=== PATIENT | male | born 1985 | race Caucasian/White ===

== ENCOUNTER 2017-06-02 10:20 | Emergency (ER) | payer MEDICAID ==
[~2017-06-02] VITALS: Ht 177.8 cm; Wt 57.2 kg
[2017-06-02 11:12] LABS: Urine RBC None Seen /hpf (0 - 3)
[2017-06-02 11:36] LABS: Basophils # (auto) 0.1 uL; CONDITION Y; DEFINITIVE SEE PRINTOUT; Eosinophils # (auto) 0.1 uL; Eosinophils % (auto) 2.9 % (0.0-7.0); Hematocrit 43.3 % (41.0-53.0); Hemoglobin 14.9 g/dL (13.5-17.5); Lymphocytes # (auto) 1.3 uL; Mean Corpuscular Hemoglobin 35.2 pg (28.0-32.0); Mean Corpuscular Hgb Conc. 34.3 g/dL (32.0-36.0); Mean Corpuscular Volume 102.5 fL (80.0-100.0); Mean Platelet Volume 9.1 fL (7.4-10.4); Monocytes # (auto) 0.7 uL; Monocytes % (auto) 14.9 % (0.0-12.0); Neutrophils # (auto) 2.4 uL; Neutrophils % (auto) 51.2 % (37.0-80.0); Platelet Count (auto) 178 10^3/uL (140-450); Red Cell Distribution Width 13.3 % (11.6-16.0); White Blood Cell 4.6 10^3/uL (4.4-10.8)
[2017-06-02 11:42] LABS: Albumin 4.2 g/dL (3.4-5.0); BUN/Creatinine Ratio 16.1; Bilirubin, Total 0.5 mg/dL (0.2-1.0); Calcium 9.1 mg/dL (8.5-10.1); Potassium 3.4 mmol/L (3.5-5.1); Total Protein 7.8 g/dL (6.4-8.2)
[2017-06-02 11:44] LABS: Urine Bilirubin Negative (Negative); Urine Blood Negative /uL (Negative); Urine Color Yellow (Yellow); Urine Glucose Normal (Normal); Urine Ketone Negative (Negative); Urine Nitrite Negative (Negative); Urine Squamous Epithelial Cell FEW /hpf (<5); Urine Urobilinogen Normal (Negative)
[2017-06-02] MEDS ORDERED: SODIUM CHLORIDE 0.9% 1,000 ML IV ONE ×2 (12:39)
[2017-06-02] MEDS ORDERED: THIAMINE HCL 100 MG/ML 2ML VIAL IV ONE (12:45)
[2017-06-02] MEDS ORDERED: chlordiazePOXIDE HCL 5 MG CAP PO ONE (12:45)
[2017-06-02] MEDS ORDERED: ONDANSETRON HCL 4 MG/2 ML VIAL IV ONE (13:30)
[2017-06-02 17:56] VITALS: BP 137/89
== END 2017-06-02 17:20 | disposition home or self-care (01) ==
LOC: ER 10:20
DX: F10.10 Alcohol abuse, uncomplicated (principal); F17.210 Nicotine dependence, cigarettes, uncomplicated
CPT/HCPCS: 36415; 80053; 80307; 80320; 81001; 85025; 96361; 96374; 96375; 99285; J2405; J3411; J7030

== ENCOUNTER 2018-03-10 19:02 | Emergency (ER) | payer MEDICAID ==
[~2018-03-10] VITALS: Ht 177.8 cm; Wt 57.8 kg
[2018-03-10 19:12] VITALS: BP 138/98
[2018-03-10] MEDS ORDERED: TETANUS-DIPTH-ACEL PERTUSSIS 0.5ML SYRG IM ONE (21:00)
== END 2018-03-10 23:03 | disposition home or self-care (01) ==
LOC: ER 19:02
DX: L03.114 Cellulitis of left upper limb (principal); L03.113 Cellulitis of right upper limb; F17.210 Nicotine dependence, cigarettes, uncomplicated
CPT/HCPCS: 90471; 90715

== ENCOUNTER 2019-11-14 21:04 | Emergency (ER) | payer MEDICAID ==
[~2019-11-14] VITALS: Ht 177.8 cm; Wt 63.5 kg
[2019-11-14 22:11] LABS: Basophils # (auto) 0 uL; Basophils % (auto) 0.2 % (0.0-2.0); Eosinophils # (auto) 0 uL; Eosinophils % (auto) 0.1 % (0.0-7.0); Hemoglobin 17.3 g/dL (13.5-17.5); Lymphocytes # (auto) 0.2 uL; Mean Corpuscular Hemoglobin 31.1 pg (28.0-32.0); Mean Corpuscular Hgb Conc. 34.5 g/dL (32.0-36.0); Mean Corpuscular Volume 90.1 fL (80.0-100.0); Monocytes # (auto) 0.5 uL; Monocytes % (auto) 4.2 % (0.0-12.0); Neutrophils # (auto) 11.1 uL; Neutrophils % (auto) 93.5 % (37.0-80.0); Platelet Count (auto) 260 10^3/uL (140-450); Red Blood Cells 5.55 10^6/uL (4.5-5.90); Red Cell Distribution Width 12.7 % (11.8-14.3); White Blood Cell 11.9 10^3/uL (4.4-10.8)
[2019-11-14] MEDS ORDERED: SODIUM CHLORIDE 0.9% 1,000 ML IV ONE (22:15)
[2019-11-14 22:33] LABS: Albumin 3.6 g/dL (3.4-5.0); Potassium 3.6 mmol/L (3.5-5.1)
[2019-11-14 22:40] LABS: BUN/Creatinine Ratio 25.2; Bilirubin, Total 0.8 mg/dL (0.2-1.0); Total Protein 7.9 g/dL (6.4-8.2)
[2019-11-15] MEDS ORDERED: ONDANSETRON HCL 4 MG/2 ML VIAL IV ONE
[2019-11-15] MEDS ORDERED: MORPHINE SULFATE 4 MG/ML SYR/VIAL IV ONE
[2019-11-15 00:14] LABS: Urine Bacteria NONE SEEN /hpf (None Seen); Urine Blood Negative /uL (Negative); Urine Mucus FEW (None Seen); Urine Specific Gravity 1.032 (1.001-1.035); Urine WBC <1 /hpf (0 - 3)
[2019-11-15 00:22] LABS: Alcohol, Urine < 3.0 mg/dL (0-5); Amphetamine Screen, Urine POSITIVE (NEGATIVE); Barbiturate Scree,Urine NEGATIVE (NEGATIVE); Benzodiazephine Screen, Urine NEGATIVE (NEGATIVE); Cannabinoid Screen, Urine NEGATIVE (NEGATIVE); Cocaine Screen, Urine NEGATIVE (NEGATIVE); Phencyclidine Screen, Urine NEGATIVE (NEGATIVE)
[2019-11-15 00:33] LABS: Opiate Scree,Urine POSITIVE (NEGATIVE)
[2019-11-15] MEDS ORDERED: SODIUM CHLORIDE 0.9% 1,000 ML IV ONE (01:45)
[2019-11-15 03:00] VITALS: BP 116/58
== END 2019-11-15 01:31 | disposition home or self-care (01) ==
LOC: ER 21:06
DX: K52.9 Noninfective gastroenteritis and colitis, unspecified (principal); F19.10 Other psychoactive substance abuse, uncomplicated
CPT/HCPCS: 36415; 74176; 80053; 80307; 81001; 82150; 83690; 85025; 96361; 96374; 96375; 99284; J2270; J2405

== ENCOUNTER 2020-10-16 18:44 | Inpatient (IN) | payer MEDICAID ==
[~2020-10-16] VITALS: Ht 177.8 cm; Wt 63.8 kg
[2020-10-16] MEDS ORDERED: SODIUM CHLORIDE 0.9% 1,000 ML IV ONE ×2 (19:15→22:15)
[2020-10-16 20:44] LABS: Basophils # (auto) 0 10 ^3/uL (0-0.2); Basophils % (auto) 0.2 % (0.0-2.0); Eosinophils # (auto) 0 10 ^3/uL (0-0.8); Hematocrit 45.6 % (41.0-53.0); Hemoglobin 14.9 g/dL (13.5-17.5); Lymphocytes # (auto) 0.9 10 ^3/uL (0.4-5.4); Mean Corpuscular Hemoglobin 29.5 pg (28.0-32.0); Mean Corpuscular Hgb Conc. 32.6 g/dL (32.0-36.0); Mean Corpuscular Volume 90.7 fL (80.0-100.0); Monocytes # (auto) 0.1 10 ^3/uL (0-1.3); Monocytes % (auto) 0.5 % (0.0-12.0); Neutrophils # (auto) 16.1 10 ^3/uL (1.6-8.6); Neutrophils % (auto) 94.3 % (37.0-80.0); Platelet Count (auto) 230 10^3/uL (140-450); Red Blood Cells 5.03 10^6/uL (4.5-5.90); Red Cell Distribution Width 13.4 % (11.8-14.3); White Blood Cell 17.1 10^3/uL (4.4-10.8)
[2020-10-16] MEDS ORDERED: ONDANSETRON HCL 4 MG/2 ML VIAL IV ONE (20:45)
[2020-10-16] MEDS ORDERED: LORazepam 2MG/ML-1ML VIAL IV ONE (20:45)
[2020-10-16 21:01] LABS: Albumin 2.9 g/dL (3.4-5.0); Anion Gap 9 (5-15); Blood Urea Nitrogen 23 mg/dL (7-18); Calcium 8.3 mg/dL (8.5-10.1); Carbon Dioxide 26 mmol/L (21-32); Chloride 98 mmol/L (98-107); Glucose 115 mg/dL (74-106); Potassium 3.6 mmol/L (3.5-5.1); Sodium 133 mmol/L (136-145)
[2020-10-16 21:04] LABS: Lactic Acid w/Reflex 3.4 mmol/L (0.4-2.0)
[2020-10-16 21:05] LABS: Magnesium 1.8 mg/dL (1.6-2.6)
[2020-10-16 21:10] LABS: Alanine Aminotransferase 147 U/L (16-61); Alkaline Phosphatase 263 U/L (45-117); Aspartate Aminotransferase 54 U/L (15-37); BUN/Creatinine Ratio 19.5; CRP High Sensitivity > 19.0 mg/dL (< 0.3); GFR African American 91 mL/min; GFR Non-African American 75 mL/min; Total Protein 7.1 g/dL (6.4-8.2)
[2020-10-16] MEDS ORDERED: levoFLOXacin 750MG 150 ML IV ONE (21:30)
[2020-10-16] MEDS ORDERED: THIAMINE 100mg/ml INJ (200mg/2ml VIAL) IV ONE (22:15)
[2020-10-16 23:30] LABS: Alcohol, Urine < 3.0 mg/dL (0-10); Amphetamine Screen, Urine POSITIVE (NEGATIVE); Barbiturate Scree,Urine NEGATIVE (NEGATIVE); Benzodiazephine Screen, Urine NEGATIVE (NEGATIVE); Cocaine Screen, Urine NEGATIVE (NEGATIVE); Phencyclidine Screen, Urine NEGATIVE (NEGATIVE)
[2020-10-16 23:38] LABS: Cannabinoid Screen, Urine POSITIVE (NEGATIVE); Opiate Scree,Urine POSITIVE (NEGATIVE)
[2020-10-17] VITALS (7 sets, daily range): BP systolic 107–123; BP diastolic 59–74
[2020-10-17] MEDS ORDERED: LORazepam 2MG/ML-1ML VIAL IV ONE (01:00)
[2020-10-17] MEDS ORDERED: MORPHINE SULF INJ 2 MG/ML SYRINGE 1ML IV PRN (02:00)
[2020-10-17] MEDS ORDERED: NITROGLYCERIN 0.4 MG SL TAB SL PRN (02:00)
--- NOTE | 2020-10-17 03:40 | NUR ---
Received pt to Rm 273A via gurney. O2 per non-rebreather mask at 12lp. Pt writhing in bed freq c/o abd pain. Pt pale in color. Abd rounded but soft. Able to PULLIAM with coordination. Reluctance in answering questions. Repeatedly asking for pain medication. Bed low; HOB in [place]'s position. Nurse call light attached to HOB rail to pt's right. Began interview for hx. Zofran 4mg and MS 2mg given IVP for pain and to avoid N/V possible with morphine. Pt immediately fell asleep. Occ rousing then resuming sleep. Unkempt in appearance; skin and nails dirty as is hair.
[2020-10-17] MEDS: MORPHINE SULF INJ 2 MG/ML SYRINGE 1ML IV PRN ×4 (04:15→20:48)
[2020-10-17] MEDS: ONDANSETRON HCL 4 MG/2 ML VIAL IV PRN ×2 (04:15→06:27)
--- NOTE | 2020-10-17 06:22 | NUR ---
Pt repeatedly calling for more morphine or methadone. This RN went to pt's room this time to inform him that the med ordered for anxiety for him in the ER had been discontinued and his morphine is not due until 814. Reminded him that as he's not had the heroin he told this nurse he smokes, his stomach is probably reacting to this. Advised him to rethink how he self medicates when not in the hospital. Pt kept eyes closed entire time. Pt repeatedly removes O2; though assisted by this RN to replace it with instruction that he truly needs this.
[2020-10-17] MEDS: ACETAMINOPHEN 500 MG TAB PO PRN ×2 (08:31→16:19)
--- NOTE | 2020-10-17 09:06 | NUR ---
INFORMED PUBLIC INFORMATION OFFICER OF PATIENT STATUS INCLUDING MORNING VITALS AND NEW ORDERS. PATIENT MOVED TO ROOM 277A FOR CLOSER MONITORING.
--- NOTE | 2020-10-17 09:12 | NUR ---
CALLED AND SPOKE TO Srini LOCKWOOD. INFORMED OF PATIENT STATUS INCLUDING RECENT ABG STUDIES. INFORMED OF PATIENTS EPISODE OF EMESIS. RECEIVED NEW ORDERS. SEE EMAR. CALLED AND SPOKE TO RT AND INFORMED OF STATUS.
[2020-10-17] MEDS ORDERED: cefTRIAXone 1GM/50ML D5W 50 ML IV SCH (10:00)
[2020-10-17] MEDS: AZITHROMYCIN 500MG/ 250ML 250 ML IV SCH (10:36)
--- NOTE | 2020-10-17 10:46 | NUR ---
Assessment Patient is lethargic unable to assess. Will monitor mental status.
--- NOTE | 2020-10-17 11:37 | NUR ---
IV INSERTION TO RFA 20 GAUGE ON FIRST ATTEMPT OBTAINED. PATIENT TOLERATED WELL.
[2020-10-17] MEDS: PROMETHAZINE HCL 25 MG/ML 1ML IV PRN ×2 (11:47→20:49)
[2020-10-17 12:18] LABS: Basophils # (auto) 0 10 ^3/uL (0-0.2); Eosinophils # (auto) 0 10 ^3/uL (0-0.8); Hematocrit 38.3 % (41.0-53.0); Hemoglobin 12.9 g/dL (13.5-17.5); Lymphocytes # (auto) 0.5 10 ^3/uL (0.4-5.4); Lymphocytes % (auto) 2.8 % (10.0-50.0); Mean Corpuscular Hemoglobin 30.3 pg (28.0-32.0); Mean Corpuscular Hgb Conc. 33.6 g/dL (32.0-36.0); Mean Corpuscular Volume 90.2 fL (80.0-100.0); Monocytes # (auto) 0.1 10 ^3/uL (0-1.3); Monocytes % (auto) 0.6 % (0.0-12.0); Neutrophils # (auto) 19.1 10 ^3/uL (1.6-8.6); Neutrophils % (auto) 96.6 % (37.0-80.0); Platelet Count (auto) 193 10^3/uL (140-450); Red Blood Cells 4.25 10^6/uL (4.5-5.90); Red Cell Distribution Width 13.2 % (11.8-14.3); White Blood Cell 19.8 10^3/uL (4.4-10.8)
--- NOTE | 2020-10-17 12:19 | NUR ---
PATIENT TAKEN DOWN TO CT.
--- NOTE | 2020-10-17 12:30 | NUR ---
PATIENT BACK FROM CT. NO S/S OF DISTRESS NOTED AT THIS TIME. STILL ON 15L NON REBREATHER.
[2020-10-17 12:38] LABS: Albumin 2.1 g/dL (3.4-5.0); Calcium 7.8 mg/dL (8.5-10.1); Potassium 3.3 mmol/L (3.5-5.1)
[2020-10-17 12:58] LABS: BUN/Creatinine Ratio 16.2; Bilirubin, Total 1.5 mg/dL (0.2-1.0); Total Protein 5.8 g/dL (6.4-8.2)
--- NOTE | 2020-10-17 13:26 | NUR ---
contacted Beryl Stephens SHIPPING INSPECTOR regarding potassium 3.3 mEq/L, sodium 129 mEq/L and glucose 259 mg/dL. Message left
[2020-10-17] MEDS ORDERED: SODIUM CHLORIDE 0.9% 1,000 ML IV ONE (13:45)
[2020-10-17] MEDS ORDERED: PIPERACILLIN-TAZOB 3.375GM 100 ML IV SCH (14:00)
[2020-10-17] MEDS: POTASSIUM CHL 20MEQ/100ML 100 ML IV SCH ×2 (14:15→16:24)
--- NOTE | 2020-10-17 16:09 | NUR ---
IV INSERTION TO LFA 20 GAUGE OBTAINED ON FIRST ATTEMPT USING CLEAN TECHNIQUE.
--- NOTE | 2020-10-17 19:29 | NUR ---
CONTACTED ACE LOCKWOOD CHEF UNDER REGARDING INFLUENZA B POSITIVE RESULT. MESSAGE LEFT.
--- NOTE | 2020-10-17 19:35 | NUR ---
Opening Shift Note Assumed care of patient. Patient sleeping in bed. No S/S of distress/SOB or pain. Patient on 15L Non-rebreather, O2 sat at 100%. Safety measures maintained by keeping the bed locked in lowest position, 2 side rails up, personal items and call light within reach. Instructed on POC and to call for assist PRN, will continue to monitor for changes Q1hr and PRN.
[2020-10-17] MEDS: PIPERACILLIN-TAZOB 3.375GM 100 ML IV SCH (22:16)
[2020-10-18] MEDS: MORPHINE SULF INJ 2 MG/ML SYRINGE 1ML IV PRN ×3 (03:27→16:18)
[2020-10-18] MEDS: PROMETHAZINE HCL 25 MG/ML 1ML IV PRN (03:28)
[2020-10-18] MEDS: PIPERACILLIN-TAZOB 3.375GM 100 ML IV SCH ×3 (05:40→22:00)
[2020-10-18 06:30] LABS: Basophils # (auto) 0 10 ^3/uL (0-0.2); Basophils % (auto) 0.1 % (0.0-2.0); Eosinophils # (auto) 0 10 ^3/uL (0-0.8); Hematocrit 39.9 % (41.0-53.0); Hemoglobin 13.3 g/dL (13.5-17.5); Lymphocytes # (auto) 0.6 10 ^3/uL (0.4-5.4); Lymphocytes % (auto) 3.4 % (10.0-50.0); Mean Corpuscular Hemoglobin 29.9 pg (28.0-32.0); Mean Corpuscular Hgb Conc. 33.3 g/dL (32.0-36.0); Mean Corpuscular Volume 89.8 fL (80.0-100.0); Monocytes # (auto) 0.2 10 ^3/uL (0-1.3); Monocytes % (auto) 1.1 % (0.0-12.0); Neutrophils # (auto) 16.4 10 ^3/uL (1.6-8.6); Neutrophils % (auto) 95.4 % (37.0-80.0); Platelet Count (auto) 203 10^3/uL (140-450); Red Blood Cells 4.44 10^6/uL (4.5-5.90); Red Cell Distribution Width 13.4 % (11.8-14.3); White Blood Cell 17.2 10^3/uL (4.4-10.8)
[2020-10-18 06:40] LABS: Albumin 1.9 g/dL (3.4-5.0); Calcium 8.6 mg/dL (8.5-10.1); Magnesium 2.5 mg/dL (1.6-2.6)
[2020-10-18 06:44] LABS: BUN/Creatinine Ratio 21.4; Bilirubin, Total 0.8 mg/dL (0.2-1.0); Total Protein 6.2 g/dL (6.4-8.2)
[2020-10-18 09:00] VITALS: BP 110/61
[2020-10-18] MEDS: METOPROLOL TARTRATE 25 MG TAB PO SCH ×2 (10:04→22:00)
[2020-10-18] MEDS: HYDROcodone-ACET 10/325MG TAB PO PRN ×2 (10:04→17:32)
[2020-10-18] MEDS: AZITHROMYCIN 500MG/ 250ML 250 ML IV SCH (10:04)
[2020-10-18] MEDS: OSELTAMIVIR 75 MG CAP PO SCH ×2 (10:51→22:00)
[2020-10-18] MEDS ORDERED: ETOMIDATE (2MG/ML) 20ML VIAL IV ONE (12:13)
[2020-10-18 13:00] VITALS: BP 107/67
[2020-10-18 17:18] VITALS: BP 106/62
[2020-10-18 22:00] VITALS: BP 107/52
[2020-10-19] MEDS: HYDROcodone-ACET 10/325MG TAB PO PRN ×3 (01:39→18:49)
[2020-10-19 05:00] VITALS: BP 103/61
[2020-10-19] MEDS: PIPERACILLIN-TAZOB 3.375GM 100 ML IV SCH ×3 (06:00→22:52)
[2020-10-19] MEDS: MORPHINE SULF INJ 2 MG/ML SYRINGE 1ML IV PRN ×3 (06:54→20:20)
[2020-10-19 07:03] LABS: Basophils # (auto) 0 10 ^3/uL (0-0.2); Basophils % (auto) 0.2 % (0.0-2.0); Eosinophils # (auto) 0 10 ^3/uL (0-0.8); Eosinophils % (auto) 0.2 % (0.0-7.0); Hematocrit 37.7 % (41.0-53.0); Hemoglobin 12.7 g/dL (13.5-17.5); Lymphocytes # (auto) 0.9 10 ^3/uL (0.4-5.4); Lymphocytes % (auto) 5.7 % (10.0-50.0); Mean Corpuscular Hemoglobin 29.8 pg (28.0-32.0); Mean Corpuscular Hgb Conc. 33.7 g/dL (32.0-36.0); Mean Corpuscular Volume 88.6 fL (80.0-100.0); Monocytes # (auto) 0.5 10 ^3/uL (0-1.3); Monocytes % (auto) 3.3 % (0.0-12.0); Neutrophils # (auto) 14.3 10 ^3/uL (1.6-8.6); Neutrophils % (auto) 90.6 % (37.0-80.0); Nucleated Red Blood Cells % 0.1 %; Platelet Count (auto) 228 10^3/uL (140-450); Red Blood Cells 4.26 10^6/uL (4.5-5.90); Red Cell Distribution Width 13.1 % (11.8-14.3); White Blood Cell 15.8 10^3/uL (4.4-10.8)
[2020-10-19 07:22] LABS: Potassium 3.4 mmol/L (3.5-5.1)
[2020-10-19 07:32] LABS: Albumin 1.8 g/dL (3.4-5.0); BUN/Creatinine Ratio 20.7; Bilirubin, Total 0.5 mg/dL (0.2-1.0); Calcium 8.5 mg/dL (8.5-10.1); Magnesium 2.2 mg/dL (1.6-2.6); Phosphorus 1.6 mg/dL (2.5-4.90); Total Protein 6.1 g/dL (6.4-8.2)
[2020-10-19 09:00] VITALS: BP 95/61
[2020-10-19] MEDS: METOPROLOL TARTRATE 25 MG TAB PO SCH (09:21)
[2020-10-19] MEDS: AZITHROMYCIN 500MG/ 250ML 250 ML IV SCH (09:30)
[2020-10-19] MEDS: OSELTAMIVIR 75 MG CAP PO SCH ×2 (09:30→22:41)
--- NOTE | 2020-10-19 11:00 | NUR ---
Spoke to Dr. Santana regarding patient had SVT 200 beat per mins, asymptomatic. No new orders at this time.
--- NOTE | 2020-10-19 11:42 | NUR ---
Dr. Martinez at bedside , received new orders, noted and carried it out. Signed: 10/19/20 at 1143 by LAQUITA BAE RN
[2020-10-19] MEDS ORDERED: METOPROLOL TARTRATE 25 MG TAB PO SCH (12:00)
--- NOTE | 2020-10-19 12:09 | NUR ---
Received new order from Dr. Santana to give Vancomycin per pharmacy after all four blood culture done. Noted and carried it out.
[2020-10-19 13:00] VITALS: BP 123/65
[2020-10-19] MEDS ORDERED: VANCOMYCIN PER PHARMACY 0 MG IV SCH (15:30)
[2020-10-19 17:00] VITALS: BP 117/73
[2020-10-19] MEDS: VANCOMYCIN 1GM/250ML 250 ML IV SCH (18:34)
[2020-10-19 22:00] VITALS: BP 112/63
[2020-10-19] MEDS: METOPROLOL TARTRATE 50 MG TAB PO SCH (22:52)
[2020-10-20] MEDS: VANCOMYCIN 1GM/250ML 250 ML IV SCH ×3 (01:12→16:52)
[2020-10-20] MEDS: HYDROcodone-ACET 10/325MG TAB PO PRN ×3 (01:19→16:52)
[2020-10-20] MEDS: MORPHINE SULF INJ 2 MG/ML SYRINGE 1ML IV PRN ×3 (04:58→14:09)
[2020-10-20 05:00] VITALS: BP 113/68
[2020-10-20] MEDS: PIPERACILLIN-TAZOB 3.375GM 100 ML IV SCH ×3 (05:48→21:41)
[2020-10-20 07:54] LABS: Hematocrit 35.1 % (41.0-53.0); Hemoglobin 11.7 g/dL (13.5-17.5); Mean Corpuscular Hemoglobin 29.7 pg (28.0-32.0); Mean Corpuscular Hgb Conc. 33.3 g/dL (32.0-36.0); Mean Corpuscular Volume 89.1 fL (80.0-100.0); Platelet Count (auto) 237 10^3/uL (140-450); Red Blood Cells 3.94 10^6/uL (4.5-5.90); Red Cell Distribution Width 13.4 % (11.8-14.3); White Blood Cell 15.9 10^3/uL (4.4-10.8)
[2020-10-20 08:12] LABS: Calcium 8.1 mg/dL (8.5-10.1); Potassium 3.5 mmol/L (3.5-5.1)
[2020-10-20 08:17] LABS: BUN/Creatinine Ratio 15.3
[2020-10-20 08:43] LABS: Band Neutrophils % (manual) 0; Basophils % (manual) 0 (0.0-2.0); Blast Cells 0; Eosinophils % (manual) 0 (0-7); Promyelocytes % 0; Reactive Lymphocytes 0
[2020-10-20 08:45] LABS: Lymphocytes % (manual) 10 (10.0-50.0); Metamyelocytes % 2; Monocytes % (manual) 6 (0-12); Myelocytes % 2
[2020-10-20 09:00] VITALS: BP 108/64
[2020-10-20 09:46] VITALS: BP 112/69
[2020-10-20] MEDS: AZITHROMYCIN 500MG/ 250ML 250 ML IV SCH (09:49)
[2020-10-20] MEDS: OSELTAMIVIR 75 MG CAP PO SCH ×2 (09:49→21:43)
[2020-10-20] MEDS: METOPROLOL TARTRATE 50 MG TAB PO SCH ×2 (09:49→21:43)
--- NOTE | 2020-10-20 09:58 | NUR ---
Dr. Brennan at bedside discussed with patient, received new orders, noted and carried it out.
[2020-10-20 13:00] VITALS: BP 113/68
--- NOTE | 2020-10-20 14:16 | NUR ---
Nutrition Assessment Notes Please refer to link for full assessment notes. Est Energy needs: 0362-8619 kcals (25-30 kcal/kgIBW) Est Protein needs: 60-75 gms/day (0.8-1.0 gm/kgIBW) Will continue to monitor and reassess prn. Addendum: 10/20/20 at [address] Amended: Links added.
--- NOTE | 2020-10-20 16:36 | NUR ---
Attempted to call lab due blood culture has not been drawn, no one crab picker the phone.
--- NOTE | 2020-10-20 16:55 | NUR ---
Dr. Mukherjee pain management at bedside.
[2020-10-20 17:00] VITALS: BP 118/72
[2020-10-20] MEDS: HYDROmorphone HCL 2 MG/ML VL IV PRN ×2 (17:58→21:18)
--- NOTE | 2020-10-20 19:10 | NUR ---
Received report from day rn. patient is resting at this time with no signs of distress.
--- NOTE | 2020-10-20 19:22 | NUR ---
Spoke to Azalia from Lab, and followed up on blood cultures and labs. Azalia from Lab confirmed orders and will call syrup machine laborer.
[2020-10-20 22:00] VITALS: BP 113/74
--- NOTE | 2020-10-21 00:04 | NUR ---
called lab to follow up on yissel adhikari. confirmed. shop technician will be here shortly.
[2020-10-21] MEDS: HYDROmorphone HCL 2 MG/ML VL IV PRN ×8 (00:58→23:37)
--- NOTE | 2020-10-21 01:09 | NUR ---
called lab to confirm vanco trough. confirmed. pending results, not resulted yet.
[2020-10-21] MEDS: VANCOMYCIN 1GM/250ML 250 ML IV SCH ×3 (02:08→16:34)
[2020-10-21 05:00] VITALS: BP 118/71
[2020-10-21] MEDS: PIPERACILLIN-TAZOB 3.375GM 100 ML IV SCH ×3 (06:01→22:10)
--- NOTE | 2020-10-21 07:09 | NUR ---
OPENING SHIFT NOTE Assumed care of patient from material handler 2nd shift RN. Patient is alert and oriented x4, no signs of distress noted, c/o pain 10/10, will medicate as ordered. He was updated on the plan of care and verbalized understanding. Patient oxygen is off, saturating 90% on room air. placed back on O2 via nasal cannula at 2L/min via nasal cannula, saturation is 94%. Bed is locked, in the lowest position, side rails up x2 and call light is in reach. He was encouraged to call for assistance as needed.
--- NOTE | 2020-10-21 08:27 | NUR ---
RUDY AT BEDSIDE He was updated on the patient status. Plan of care was discussed with the patient and he verbalized understanding. New orders to receive blood culture if patient has a temperature. Order read back and verified.
[2020-10-21 08:48] VITALS: BP 129/69
[2020-10-21] MEDS: AZITHROMYCIN 500MG/ 250ML 250 ML IV SCH (10:26)
[2020-10-21] MEDS: METOPROLOL TARTRATE 50 MG TAB PO SCH ×2 (10:27→22:11)
[2020-10-21] MEDS: OSELTAMIVIR 75 MG CAP PO SCH ×2 (10:29→22:11)
[2020-10-21 11:32] VITALS: BP 118/65
[2020-10-21] MEDS: PROMETHAZINE HCL 25 MG/ML 1ML IV PRN (17:23)
[2020-10-21 17:27] VITALS: BP 113/70
--- NOTE | 2020-10-21 19:30 | NUR ---
OPENING SHIFT NOTE Assumed care of patient who is alert and oriented, currently on 4L NC with no S/S of distress or SOB noted at this time. Droplet isolation for influenza B in place. Patient complains of pain 08/17, will medicate as ordered. POC discussed with patient, all questions answered, verbalized understanding. Bed is locked, in lowest position, side rails up x2. Call light within reach, patient encouraged to call for assistance as needed. Will continue to monitor PRN/Q1hr.
[2020-10-21 22:00] VITALS: BP 123/67
[2020-10-22] MEDS: VANCOMYCIN 1GM/250ML 250 ML IV SCH ×3 (01:00→21:30)
[2020-10-22] MEDS: HYDROmorphone HCL 2 MG/ML VL IV PRN ×7 (02:39→21:50)
[2020-10-22 05:00] VITALS: BP 107/66
[2020-10-22] MEDS: PIPERACILLIN-TAZOB 3.375GM 100 ML IV SCH ×2 (05:32→15:18)
[2020-10-22 06:20] LABS: Basophils # (auto) 0.1 10 ^3/uL (0-0.2); Basophils % (auto) 0.4 % (0.0-2.0); Eosinophils # (auto) 0.1 10 ^3/uL (0-0.8); Eosinophils % (auto) 0.4 % (0.0-7.0); Hematocrit 35.3 % (41.0-53.0); Hemoglobin 11.9 g/dL (13.5-17.5); Lymphocytes # (auto) 1.9 10 ^3/uL (0.4-5.4); Lymphocytes % (auto) 10.9 % (10.0-50.0); Mean Corpuscular Hemoglobin 29.9 pg (28.0-32.0); Mean Corpuscular Hgb Conc. 33.6 g/dL (32.0-36.0); Mean Corpuscular Volume 89.1 fL (80.0-100.0); Monocytes # (auto) 1.8 10 ^3/uL (0-1.3); Monocytes % (auto) 9.9 % (0.0-12.0); Neutrophils # (auto) 13.9 10 ^3/uL (1.6-8.6); Neutrophils % (auto) 78.4 % (37.0-80.0); Platelet Count (auto) 395 10^3/uL (140-450); Red Blood Cells 3.96 10^6/uL (4.5-5.90); Red Cell Distribution Width 13.6 % (11.8-14.3); White Blood Cell 17.8 10^3/uL (4.4-10.8)
[2020-10-22 06:38] LABS: Calcium 8.6 mg/dL (8.5-10.1); Potassium 3.9 mmol/L (3.5-5.1)
[2020-10-22 06:43] LABS: BUN/Creatinine Ratio 13.3; Bilirubin, Total 0.3 mg/dL (0.2-1.0); Magnesium 2.6 mg/dL (1.6-2.6); Phosphorus 4.4 mg/dL (2.5-4.90); Total Protein 6.4 g/dL (6.4-8.2)
--- NOTE | 2020-10-22 07:42 | NUR ---
CARE ENDORSED TO DAY SHIFT RN
[2020-10-22 09:00] VITALS: BP 115/67
[2020-10-22] MEDS: OSELTAMIVIR 75 MG CAP PO SCH ×2 (10:56→21:51)
[2020-10-22] MEDS: AZITHROMYCIN 500MG/ 250ML 250 ML IV SCH (10:56)
[2020-10-22] MEDS: PROMETHAZINE HCL 25 MG/ML 1ML IV PRN (10:58)
[2020-10-22] MEDS: METOPROLOL TARTRATE 50 MG TAB PO SCH ×2 (11:13→21:51)
[2020-10-22 13:00] VITALS: BP 108/56
[2020-10-22 17:00] VITALS: BP 116/56
--- NOTE | 2020-10-22 19:30 | NUR ---
Opening Shift Note Assumed care of patient, awake and alert. No S/S of distress/SOB or pain. Instructed on POC and to call for assist PRN, will continue to monitor for changes Q1hr and PRN. Whiteboard updated and AIDET performed. Pt c/o 7/10 constant numbing mid back pain that started upon waking. Pt requesting that Dilaudid (1 mg) be brought to him q3h (PRN order). Pt states he takes Dilaudid for withdrawal. Pt fixated on watching the pain med as it is pushed into the IV site; therefore, RN obstructs view of push behind other hand as it assesses IV patency with IVP administration (Pt has a Hx of IVDA). Pt is to be DCd to a methadone clinic when stable. Pt A&Ox4, IADLs, steady gait. Pt on droplet isolation d/t Influenza B positive result; currently completing 5 day administration of Tamiflu. Per handoff report: OK to collect blood Cx if febrile - VSS at this time. Pt on 4L NC and can be noncompliant at times. Pt currently has post nasal drip and a slight nonproductive dry cough with clear lungs sounds. Pt COVID (-) with a Dx of PNA. TEL30, HR 92, JA 0.14, QRS 0.10, NSR with PVCs x1 and no pauses. Pt has Vanco and Zosyn orders which are both in dextrose and not compatible at y-site; therefore, waiting for AM shift Zosyn to finish infusing before handing overdue vanco from AM shift. Pt has a 20 G LAC which flushes with no return; no c/o pain or discomfort at insertion site. 0400: Vanco dose held d/t vanco Tr elevated at 27.4 (hold parameters if > 20). Addendum: 10/23/20 at 0849 by Reg 10 RN Terese Boyce, BSN, RN, SCRN, PCCN, VA-BC, NEHA, TCRN, MICN
[2020-10-22 20:00] VITALS: BP 124/65
[2020-10-22 21:45] VITALS: BP 124/65
[2020-10-23] MEDS: VANCOMYCIN 1GM/250ML 250 ML IV SCH ×3 (01:00→17:31)
[2020-10-23] MEDS: PIPERACILLIN-TAZOB 3.375GM 100 ML IV SCH ×3 (01:10→14:19)
[2020-10-23] MEDS: HYDROmorphone HCL 2 MG/ML VL IV PRN ×7 (04:37→23:20)
[2020-10-23 05:27] VITALS: BP 122/71
[2020-10-23 06:18] LABS: Hematocrit 36.2 % (41.0-53.0); Hemoglobin 12.3 g/dL (13.5-17.5); Mean Corpuscular Hemoglobin 30.4 pg (28.0-32.0); Mean Corpuscular Hgb Conc. 33.8 g/dL (32.0-36.0); Mean Corpuscular Volume 89.7 fL (80.0-100.0); Platelet Count (auto) 499 10^3/uL (140-450); Red Blood Cells 4.04 10^6/uL (4.5-5.90); Red Cell Distribution Width 13.7 % (11.8-14.3); White Blood Cell 17.1 10^3/uL (4.4-10.8)
[2020-10-23 06:46] LABS: Albumin 2.2 g/dL (3.4-5.0); BUN/Creatinine Ratio 13.3; Bilirubin, Total 0.3 mg/dL (0.2-1.0); Calcium 8.3 mg/dL (8.5-10.1); Total Protein 6.2 g/dL (6.4-8.2)
[2020-10-23 07:02] LABS: Basophils % (manual) 0 (0.0-2.0); Blast Cells 0; Promyelocytes % 0; Reactive Lymphocytes 0
--- NOTE | 2020-10-23 07:16 | NUR ---
OPENING SHIFT NOTE Assumed care of patient from shift supervisor rn RN. Patient is alert and orientedx4, no signs of distress noted. Patient c/o pain 08/17. Medicated by shift supervisor rn RN. He was updated on the plan of care and verbalized understanding. Bed is locked, in the lowest position, side rails up x2 and call light is in reach. He was encouraged to call for assistance as needed. Addendum: 10/23/20 at 0848 by Reg 10 RN Terese Boyce, BSN, RN, SCRN, PCCN, VA-BC, NEHA, TCRN, MICN
[2020-10-23 09:00] VITALS: BP 112/63
[2020-10-23 09:33] LABS: Band Neutrophils % (manual) 2; Eosinophils % (manual) 1 (0-7); Lymphocytes % (manual) 12 (10.0-50.0); Metamyelocytes % 1; Monocytes % (manual) 6 (0-12); Myelocytes % 2
[2020-10-23] MEDS: METOPROLOL TARTRATE 50 MG TAB PO SCH ×2 (10:43→22:00)
[2020-10-23] MEDS: AZITHROMYCIN 500MG/ 250ML 250 ML IV SCH (10:45)
--- NOTE | 2020-10-23 11:44 | NUR ---
MELLISSA AT BEDSIDE Updated on the patient status and the plan of care. New order received for chest xray 2 view. Order read back and verified.
[2020-10-23 12:19] VITALS: BP 109/65
--- NOTE | 2020-10-23 14:27 | NUR ---
Nutrition Followup Notes Pt wt is 63.0 kg Pt is with a Cardiac 2gNa diet, appetite is poor aeb ave 40% x5 PO intake per RN doc. Pt is with no s/s of distress or pain. Est Energy needs: 2027-7299 kcals (25-30 kcal/kgIBW) Est Protein needs: 60-75 gms/day (0.8-1.0 gm/kgIBW) Will continue to monitor and reassess prn. LABS: GLUC 123 H, CA 8.3 L, ALB 2.2 L GI: Pt had 1 BM on 10/21 per RN doc BS: 18 mod risk. Refer to wound assessment report for further details PES: Altered nutrition related lab values r/t current medical condition aeb hyperglycemia, hypocalcemia, hypoalbuminemia Comments Will continue to monitor PO status, skin status, pertinent labs and weight trends. Will f/u in 3-5 days 1) Continue to closely monitor pt PO intake to meet at least 75% of meals 2) If albumin continues trending down consider Prostat 1 pkt BID 3) Continue current plan of care
--- NOTE | 2020-10-23 14:49 | NUR ---
MESSAGE LEFT FOR LIAT regarding social worker consult, patient is homeless.
[2020-10-23] MEDS: PROMETHAZINE HCL 25 MG/ML 1ML IV PRN (20:40)
[2020-10-23] MEDS: MEROPENEM 1GM IVPB 100 ML IV SCH (22:00)
[2020-10-24] MEDS: VANCOMYCIN 1GM/250ML 250 ML IV SCH ×3 (01:00→17:00)
[2020-10-24] MEDS: HYDROmorphone HCL 2 MG/ML VL IV PRN ×6 (02:57→21:41)
[2020-10-24 04:00] VITALS: BP 125/75
[2020-10-24] MEDS: MEROPENEM 1GM IVPB 100 ML IV SCH ×3 (05:38→21:41)
[2020-10-24 05:50] LABS: Albumin 2.2 g/dL (3.4-5.0); Calcium 8.8 mg/dL (8.5-10.1); Hematocrit 36.8 % (41.0-53.0); Magnesium 2.9 mg/dL (1.6-2.6); Mean Corpuscular Hemoglobin 29.5 pg (28.0-32.0); Mean Corpuscular Hgb Conc. 32.6 g/dL (32.0-36.0); Mean Corpuscular Volume 90.6 fL (80.0-100.0); Platelet Count (auto) 610 10^3/uL (140-450); Potassium 4.1 mmol/L (3.5-5.1); Red Blood Cells 4.06 10^6/uL (4.5-5.90); Red Cell Distribution Width 13.7 % (11.8-14.3); White Blood Cell 15.6 10^3/uL (4.4-10.8)
[2020-10-24 05:53] LABS: BUN/Creatinine Ratio 13.5; Bilirubin, Total 0.2 mg/dL (0.2-1.0); Total Protein 6.7 g/dL (6.4-8.2)
[2020-10-24 06:46] LABS: Basophils % (manual) 0 (0.0-2.0); Blast Cells 0; Metamyelocytes % 0; Reactive Lymphocytes 0
[2020-10-24 07:42] LABS: Band Neutrophils % (manual) 1; Eosinophils % (manual) 1 (0-7); Lymphocytes % (manual) 15 (10.0-50.0); Monocytes % (manual) 4 (0-12); Myelocytes % 1; Promyelocytes % 1
[2020-10-24 09:00] VITALS: BP 113/62
[2020-10-24] MEDS: METOPROLOL TARTRATE 50 MG TAB PO SCH ×2 (09:52→21:41)
--- NOTE | 2020-10-24 11:49 | NUR ---
Assessment Patient refusing placement options but is accepting resources. Per patient he will return to his prior living arrachements post discharge day. Provided information to clothes closet and meal prior to discharge. Patient accepted. Offered patient taxi voucher within 30 miles and pt agreed. Completed home less assessment and pt signed homeless waiver. Will follow-up and provide intervention as appropriate. Addendum: 10/24/20 at 1153 by LIAT RIOS Amended: Links added.
[2020-10-24 13:00] VITALS: BP 117/74
[2020-10-24 16:39] VITALS: BP 92/62
--- NOTE | 2020-10-24 17:13 | NUR ---
Vanco trough 23.8 . Scheduled vancomycin held as per order. Pharmacist made aware of result.
[2020-10-24 18:30] VITALS: BP 110/70
[2020-10-24 22:00] VITALS: BP 107/69
[2020-10-25] MEDS: VANCOMYCIN 1GM/250ML 250 ML IV SCH ×2 (01:05→13:00)
[2020-10-25] MEDS: HYDROmorphone HCL 2 MG/ML VL IV PRN ×7 (01:05→22:40)
[2020-10-25 05:00] VITALS: BP 116/59
[2020-10-25] MEDS: MEROPENEM 1GM IVPB 100 ML IV SCH ×3 (05:08→22:40)
[2020-10-25 05:34] LABS: Hematocrit 37.4 % (41.0-53.0); Hemoglobin 12.4 g/dL (13.5-17.5); Mean Corpuscular Hemoglobin 29.8 pg (28.0-32.0); Mean Corpuscular Hgb Conc. 33.1 g/dL (32.0-36.0)
[2020-10-25 05:36] LABS: Mean Corpuscular Volume 90.1 fL (80.0-100.0); Platelet Count (auto) 670 10^3/uL (140-450); Red Blood Cells 4.14 10^6/uL (4.5-5.90); Red Cell Distribution Width 13.4 % (11.8-14.3); White Blood Cell 15.7 10^3/uL (4.4-10.8)
[2020-10-25 05:49] LABS: Albumin 2.3 g/dL (3.4-5.0); Calcium 8.9 mg/dL (8.5-10.1); Magnesium 2.8 mg/dL (1.6-2.6); Potassium 4.2 mmol/L (3.5-5.1)
[2020-10-25 05:54] LABS: BUN/Creatinine Ratio 13.8; Bilirubin, Total 0.3 mg/dL (0.2-1.0)
[2020-10-25 06:47] LABS: Basophils % (manual) 0 (0.0-2.0); Blast Cells 0; Eosinophils % (manual) 0 (0-7); Metamyelocytes % 0; Promyelocytes % 0; Reactive Lymphocytes 0
[2020-10-25 07:54] LABS: Band Neutrophils % (manual) 3; Lymphocytes % (manual) 10 (10.0-50.0); Monocytes % (manual) 10 (0-12); Myelocytes % 1
[2020-10-25 08:36] VITALS: BP 122/69
[2020-10-25] MEDS: METOPROLOL TARTRATE 50 MG TAB PO SCH ×2 (10:44→22:40)
[2020-10-25 12:54] VITALS: BP 110/60
--- NOTE | 2020-10-25 15:20 | NUR ---
MANDIE COOL ROOFING INSTALLER WAS IN TO SEE PATIENT. MADE AWARE THAT THE PATIENT HAD IV SITE RED AND HAD DISCHARGE WHEN IV WAS REMOVED AND HAS ONLY 24 G IV. NEW ORDERS WERE LEFT AFTER.
[2020-10-25 16:38] VITALS: BP 110/59
--- NOTE | 2020-10-25 18:32 | NUR ---
Midline Placement: Patient educated on need for midline placement. All risks and benefits explained and all questions and concerns addresses prior to procedure. 4Fr 20cm midline inserted via RIGHT BASILIC vein using Ultrasound. Sterile technique utilized. Blood return obtained from THE SINGLE lumen and flushed easily with NS using proper technique. Midline secured with saline lock; biodisc and occlusive dressing applied. Primary RN notified. Midline lot #[id number]. INTERNAL LENGTH 20CM EXTERNAL LENGTH 0CM
[2020-10-25 22:00] VITALS: BP 112/54
[2020-10-26] MEDS: VANCOMYCIN 1GM/250ML 250 ML IV SCH ×2 (01:00→14:07)
[2020-10-26] MEDS: HYDROmorphone HCL 2 MG/ML VL IV PRN ×5 (01:46→14:04)
[2020-10-26] MEDS: MEROPENEM 1GM IVPB 100 ML IV SCH ×2 (05:02→14:00)
[2020-10-26 05:26] VITALS: BP 105/61
--- NOTE | 2020-10-26 05:36 | NUR ---
PROVIDED FULL LINEN CHANGE.
--- NOTE | 2020-10-26 07:45 | NUR ---
Opening Shift Note: Assumed care of patient, awake and alert. No S/S of distress/SOB. Patient states pain level "7/10". Will medicate as ordered. Bed in lowest locked position, side rails up x 2, call light within reach. Patient instructed on POC and to call for assist PRN, will continue to monitor for changes Q1hr and PRN.
[2020-10-26 09:00] VITALS: BP 111/61
--- NOTE | 2020-10-26 10:15 | NUR ---
Nutrition Followup Notes Wt: 63.8 kg Pt was awake and oriented when rounded this am. per pt no N.V with fair appetite. per pt has lot of pain. pt is currently on cardiac diet with adequate Po of 75% x6 per RN doc Est Energy needs: 5737-8160 kcals (25-30 kcal/kgIBW), Est Protein needs: 60-75 gms/day (0.8-1.0 gm/kgIBW). Will continue to monitor and reassess prn. LABS: GLU 113 H ALB 2.3 L GI: Pt had 1 BM on 10/25 per RN doc BS: 20 mod risk. Refer to wound assessment report for further details PES: Altered nutrition related lab values r/t current medical condition aeb hyperglycemia, hypocalcemia, hypoalbuminemia Comments: Will continue to monitor PO status, skin status, pertinent labs and weight trends. Will f/u in 3-5 days Rec: 1) Continue to closely monitor pt PO intake to meet at least 75% of meals 2) If albumin continues trending down consider Prostat 1 pkt BID 3) Continue current plan of care
[2020-10-26] MEDS: METOPROLOL TARTRATE 50 MG TAB PO SCH (11:18)
[2020-10-26 12:46] LABS: Hemoglobin 12.2 g/dL (13.5-17.5)
[2020-10-26 12:48] LABS: Hematocrit 35.4 % (41.0-53.0); Mean Corpuscular Hemoglobin 30.8 pg (28.0-32.0); Mean Corpuscular Hgb Conc. 34.5 g/dL (32.0-36.0); Mean Corpuscular Volume 89.2 fL (80.0-100.0); Platelet Count (auto) 638 10^3/uL (140-450); Red Blood Cells 3.97 10^6/uL (4.5-5.90); Red Cell Distribution Width 13.1 % (11.8-14.3); White Blood Cell 15.3 10^3/uL (4.4-10.8)
[2020-10-26 12:57] LABS: Basophils % (manual) 0 (0.0-2.0); Blast Cells 0; Metamyelocytes % 0; Myelocytes % 0; Promyelocytes % 0; Reactive Lymphocytes 0
[2020-10-26 13:00] VITALS: BP 109/62
[2020-10-26 13:11] LABS: Albumin 2.3 g/dL (3.4-5.0); Bilirubin, Total 0.2 mg/dL (0.2-1.0); Calcium 8.3 mg/dL (8.5-10.1); Magnesium 2.8 mg/dL (1.6-2.6); Total Protein 6.7 g/dL (6.4-8.2)
[2020-10-26 15:12] VITALS: BP 111/61
[2020-10-26 15:12] LABS: Band Neutrophils % (manual) 2; Eosinophils % (manual) 1 (0-7); Lymphocytes % (manual) 12 (10.0-50.0); Monocytes % (manual) 6 (0-12)
--- NOTE | 2020-10-26 16:36 | NUR ---
Discharge instructions given as ordered. Encourage to follow up with PMD as instructed. All questions and concerns addressed. Patient verbalized understanding. Medication reconciliation form completed and copy given to patient. IV AND MIDLINE removed with catheter intact, pressure dressing applied. Telemetry unit returned to ICU. Patient AMBULATED TO VEHICLE with all personal belongings, accompanied by staff. No distress noted at time of departure.
== END 2020-10-26 16:35 | disposition home or self-care (01) | DRG 720 ==
LOC: ER 18:44 → TELE 18:45 → TELE-WESTW 10-17 03:39 → TELE-CENTR 10-21 21:37
PROVIDERS: ADMIT Internal Medicine; ATTEND Internal Medicine
DX: A41.9 Sepsis, unspecified organism (principal); J69.0 Pneumonitis due to inhalation of food and vomit; J96.01 Acute respiratory failure with hypoxia; Z20.828 Contact with and (suspected) exposure to other viral communicable diseases; J10.1 Influenza due to other identified influenza virus with other respiratory manifestations; E86.0 Dehydration; F15.10 Other stimulant abuse, uncomplicated; F11.10 Opioid abuse, uncomplicated; F12.10 Cannabis abuse, uncomplicated; J98.11 Atelectasis; F17.210 Nicotine dependence, cigarettes, uncomplicated; F41.9 Anxiety disorder, unspecified; I47.1 Supraventricular tachycardia; I48.91 Unspecified atrial fibrillation; K44.9 Diaphragmatic hernia without obstruction or gangrene; Z79.899 Other long term (current) drug therapy; Z59.0 Homelessness
CPT/HCPCS: 36415; 36600; 71045; 71250; 80048; 80053; 80202; 80307; 82728; 82805; 83605; 83735; 83880; 84100; 84443; 84484; 85007; 85025; 85027; 86141; 87040; 87426; 87804; 93005; 93306; G0378; J0696; J1956; J2185; J2405; J2543; J3480

== ENCOUNTER 2021-07-05 02:31 | Emergency (ER) | payer MEDICAID ==
[~2021-07-05] VITALS: Ht 167.6 cm; Wt 63.5 kg
== END 2021-07-05 02:45 | disposition left against medical advice (07) ==
LOC: ER 02:31
DX: F12.10 Cannabis abuse, uncomplicated (principal); F15.10 Other stimulant abuse, uncomplicated; F17.210 Nicotine dependence, cigarettes, uncomplicated; Z59.0 Homelessness

== ENCOUNTER 2022-05-24 23:33 | Inpatient (IN) | payer MEDICAID ==
[~2022-05-24] VITALS: Ht 177.8 cm; Wt 68.1 kg
[2022-05-25 00:47] LABS: Basophils # (auto) 0 10 ^3/uL (0-0.2); Basophils % (auto) 0.3 % (0.0-2.0); Eosinophils # (auto) 0 10 ^3/uL (0-0.8); Eosinophils % (auto) 0.2 % (0.0-7.0); Hematocrit 38.2 % (41.0-53.0); Hemoglobin 13.1 g/dL (13.5-17.5); Lymphocytes # (auto) 1.3 10 ^3/uL (0.4-5.4); Lymphocytes % (auto) 9.4 % (10.0-50.0); Mean Corpuscular Hemoglobin 29.8 pg (28.0-32.0); Mean Corpuscular Hgb Conc. 34.3 g/dL (32.0-36.0); Mean Corpuscular Volume 86.9 fL (80.0-100.0); Monocytes # (auto) 1.3 10 ^3/uL (0-1.3); Neutrophils # (auto) 11.6 10 ^3/uL (1.6-8.6); Neutrophils % (auto) 81.1 % (37.0-80.0); Nucleated Red Blood Cells % 0.1 %; Red Cell Distribution Width 13.1 % (11.8-14.3); White Blood Cell 14.3 10^3/uL (4.4-10.8)
[2022-05-25 01:02] LABS: Alanine Aminotransferase 93 U/L (16-61); Albumin 3.1 g/dL (3.4-5.0); Anion Gap 8 (5-15); Aspartate Aminotransferase 43 U/L (15-37); BUN/Creatinine Ratio 11.3; Blood Urea Nitrogen 9 mg/dL (7-18); Calcium 8.3 mg/dL (8.5-10.1); Carbon Dioxide 27 mmol/L (21-32); Chloride 102 mmol/L (98-107); GFR African American 141 mL/min; GFR Non-African American 116 mL/min; Glucose 111 mg/dL (74-106); Lipase 60 U/L (73-393); Potassium 3.5 mmol/L (3.5-5.1); Sodium 137 mmol/L (136-145)
[2022-05-25 01:04] LABS: Alkaline Phosphatase 278 U/L (45-117); Bilirubin, Total 0.8 mg/dL (0.2-1.0); Total Protein 7.2 g/dL (6.4-8.2)
[2022-05-25] MEDS ORDERED: PANTOPRAZOLE 40 MG TAB PO ONE (02:45)
[2022-05-25] MEDS ORDERED: ONDANSETRON ODT 4 MG TAB PO ONE (02:45)
[2022-05-25] MEDS ORDERED: IBUPROFEN 800 MG TAB PO ONE (02:45)
[2022-05-25 05:31] LABS: Urine Bacteria NONE SEEN /hpf (None Seen); Urine Blood Negative /uL (Negative); Urine Mucus FEW (None Seen); Urine Specific Gravity 1.026 (1.001-1.035); Urine WBC 4 /hpf (0 - 3)
[2022-05-25 05:41] LABS: Alcohol, Urine < 3.0 mg/dL (0-10); Amphetamine Screen, Urine POSITIVE (NEGATIVE); Barbiturate Scree,Urine NEGATIVE (NEGATIVE); Benzodiazephine Screen, Urine NEGATIVE (NEGATIVE); Cannabinoid Screen, Urine POSITIVE (NEGATIVE); Cocaine Screen, Urine NEGATIVE (NEGATIVE); Opiate Scree,Urine POSITIVE (NEGATIVE); Phencyclidine Screen, Urine NEGATIVE (NEGATIVE)
[2022-05-25] MEDS ORDERED: MORPHINE SULFATE INJ 2 MG/ml SYRG IV PRN ×2 (07:00)
[2022-05-25] MEDS ORDERED: ONDANSETRON HCL 4 MG/2 ML VIAL IV PRN (07:00)
[2022-05-25] MEDS ORDERED: NITROGLYCERIN 0.4 MG SL TAB SL PRN (07:00)
[2022-05-25 07:47] LABS: Basophils # (auto) 0 10 ^3/uL (0-0.2); Basophils % (auto) 0.3 % (0.0-2.0); Eosinophils # (auto) 0 10 ^3/uL (0-0.8); Eosinophils % (auto) 0.1 % (0.0-7.0); Hematocrit 36.3 % (41.0-53.0); Hemoglobin 12.4 g/dL (13.5-17.5); Lymphocytes # (auto) 1.8 10 ^3/uL (0.4-5.4); Lymphocytes % (auto) 16.3 % (10.0-50.0); Mean Corpuscular Hemoglobin 29.3 pg (28.0-32.0); Mean Corpuscular Hgb Conc. 34.1 g/dL (32.0-36.0); Monocytes # (auto) 1.2 10 ^3/uL (0-1.3); Monocytes % (auto) 10.5 % (0.0-12.0); Neutrophils # (auto) 8.2 10 ^3/uL (1.6-8.6); Neutrophils % (auto) 72.8 % (37.0-80.0); Nucleated Red Blood Cells % 0.1 %; Red Blood Cells 4.22 10^6/uL (4.5-5.90); Red Cell Distribution Width 13.4 % (11.8-14.3); White Blood Cell 11.3 10^3/uL (4.4-10.8)
[2022-05-25 08:03] LABS: Albumin 2.9 g/dL (3.4-5.0); Calcium 8.3 mg/dL (8.5-10.1); Potassium 3.4 mmol/L (3.5-5.1)
[2022-05-25 08:06] LABS: BUN/Creatinine Ratio 14.7; Bilirubin, Total 0.9 mg/dL (0.2-1.0); Total Protein 6.7 g/dL (6.4-8.2)
[2022-05-25] MEDS ORDERED: ALBUTEROL SULF 2.5 MG/0.5ML(0.5%) NEB SOLN NEB PRN ×2 (08:45)
[2022-05-25 08:58] VITALS: BP 105/59
[2022-05-25] MEDS ORDERED: PIPERACILLIN-TAZOB 3.375GM 100 ML IV SCH (09:00)
[2022-05-25] MEDS ORDERED: DOCUSATE SOD 100 MG CAP PO SCH (10:00)
[2022-05-25] MEDS ORDERED: AZITHROMYCIN 500MG/ 250ML 250 ML IV SCH (10:00)
[2022-05-25] MEDS ORDERED: PANTOPRAZOLE 40 MG/10 ML VIAL INJ IV SCH (10:00)
[2022-05-25] MEDS ORDERED: SUCRALFATE 1 GM/10 ML ORAL SUSP PO SCH (11:30)
[2022-05-25 12:00] VITALS: BP 99/65
== END 2022-05-25 12:20 | disposition left against medical advice (07) | DRG 241 ==
LOC: ER 23:33 → TELE 05-25 07:03
PROVIDERS: ADMIT Internal Medicine; ATTEND Internal Medicine
DX: K29.70 Gastritis, unspecified, without bleeding (principal); J18.9 Pneumonia, unspecified organism; F17.210 Nicotine dependence, cigarettes, uncomplicated; F19.10 Other psychoactive substance abuse, uncomplicated; Z53.21 Procedure and treatment not carried out due to patient leaving prior to being seen by health care provider; R51.9 Headache, unspecified; Z20.822 Contact with and (suspected) exposure to COVID-19; Z59.00 Homelessness unspecified
CPT/HCPCS: 36415; 74176; 80053; 80307; 80320; 81001; 83690; 85025; 96365; 96375; C9113; G0378; J2543; Q0162